=== PATIENT | female | born 1970 | race Caucasian/White ===

== ENCOUNTER → 2017-08-10 | Outpatient (CLI) | payer BC ==
[2017-08-10 15:50] LABS: BASO % 0.5 % (0.0-2.0); EOS # 0.3 (0.0-0.7); EOS % 4.1 % (0-4.0); GRAN # 2.5 (1.4-6.5); GRAN % 40.3 % (42.2-75.2); LYMPH # 2.7 (1.2-3.4); LYMPH % 43.4 % (20.0-51.0); MEAN CELL VOLUME 68 fl (80.0-100.0); MEAN CORPUSCULAR HGB CONC 27 g/dl (33.0-37.0); MEAN PLATELET VOLUME 9.5 fl (7.4-10.4); MONO # 0.7 (0.1-0.6); MONO % 11.4 % (1.7-9.3); PLATELET COUNT 393 K/mm3 (130-400); RED BLOOD COUNT 3.92 M/mm3 (4.10-5.30); REDCELL DISTRIBUTION WIDTH-CV 20.9 % (11.5-14.5)
[2017-08-10 15:54] LABS: HEMATOCRIT 26.6 % (37.0-47.0); HEMOGLOBIN 7.2 g/dl (12.5-16.0); MEAN CORPUSCULAR HEMOGLOBIN 18 pg (27.0-31.0)
[2017-08-10 15:58] LABS: ALBUMIN 4.2 gm/dL (3.5-5.0); BILIRUBIN,TOTAL 0.3 mg/dL (0.0-1.0); CREATININE, serum 0.65 mg/dL (0.52-1.25); POTASSIUM 3.9 mmol/L (3.4-5.0); TOTAL PROTEIN 7.6 gm/dL (6.4-8.2)
[2017-08-10 16:28] LABS: TSH w REFLEX 1.58 uIU/mL (0.465-4.680)
[2017-08-11 00:02] LABS: FOLATE (FOLIC ACID) 10.9 ng/mL (7.0-31.4)
== END ==
LOC: COL.LAB 12:00
PROVIDERS: Family Medicine
DX: Z13.1 Encounter for screening for diabetes mellitus (principal); Z13.220 Encounter for screening for lipoid disorders; D64.9 Anemia, unspecified; F41.9 Anxiety disorder, unspecified

== ENCOUNTER 2017-09-05 08:00 | Outpatient (RCR) | payer BC ==
[2017-09-01 08:54] VITALS: BP 109/48; PULSE 78; TEMP 97.7
[2017-09-02 07:00] VITALS: BP 104/55; PULSE 70; TEMP 98
[2017-09-03 08:15] VITALS: BP 103/47; PULSE 68; TEMP 97.9
[2017-09-04 07:45] VITALS: BP 98/65; PULSE 63; TEMP 97.9
[~2017-09-05] VITALS: Ht 160 cm; Wt 80.4 kg
[2017-09-05 07:38] VITALS: BP 95/55; PULSE 62; TEMP 98.3
== END 2017-09-05 09:24 | disposition home or self-care (01) ==
LOC: EUO 08:00
DX: E61.1 Iron deficiency (principal); E53.8 Deficiency of other specified B group vitamins; Z98.84 Bariatric surgery status
CPT/HCPCS: J2916

== ENCOUNTER → 2018-04-24 | Outpatient (CLI) | payer BC ==
[2018-04-24 10:44] LABS: BASO % 0.5 % (0.0-2.0); EOS # 0.1 (0.0-0.7); EOS % 2.2 % (0-4.0); GRAN # 2.8 (1.4-6.5); LYMPH # 2.3 (1.2-3.4); MEAN CELL VOLUME 79 fl (80.0-100.0); MEAN CORPUSCULAR HGB CONC 30 g/dl (33.0-37.0); MEAN PLATELET VOLUME 9.7 fl (7.4-10.4); MONO # 0.7 (0.1-0.6); PLATELET COUNT 327 K/mm3 (130-400); RED BLOOD COUNT 4.22 M/mm3 (4.10-5.30); REDCELL DISTRIBUTION WIDTH-CV 17.5 % (11.5-14.5)
[2018-04-24 10:45] LABS: HEMATOCRIT 33.2 % (37.0-47.0); HEMOGLOBIN 9.9 g/dl (12.5-16.0); MEAN CORPUSCULAR HEMOGLOBIN 23 pg (27.0-31.0)
[2018-04-24 11:04] LABS: ALBUMIN 3.8 gm/dL (3.5-5.0); BILIRUBIN,TOTAL 0.3 mg/dL (0.0-1.0); CALCIUM 9.3 mg/dL (8.4-10.2); CREATININE, serum 0.59 mg/dL (0.52-1.25); POTASSIUM 4.4 mmol/L (3.4-5.0)
[2018-04-24 11:35] LABS: TSH w REFLEX 2.84 uIU/mL (0.465-4.680)
== END ==
LOC: COL.LAB 09:47
PROVIDERS: Family Medicine
DX: D64.9 Anemia, unspecified (principal); E53.8 Deficiency of other specified B group vitamins; Z98.84 Bariatric surgery status

== ENCOUNTER 2021-07-28 17:12 | Emergency (ER) | payer OTHER, MEDICAID ==
[~2021-07-28] VITALS: Ht 157.5 cm; Wt 74.1 kg
[2021-07-28 17:14] VITALS: TEMP 97.9
[2021-07-28] MEDS ORDERED: PERCOCET 325 MG1 TA2 PO (21:22)
[2021-07-28 21:55] VITALS: BP 114/78; PULSE 76
== END 2021-07-28 21:54 | disposition home or self-care (01) ==
LOC: COL.ER 17:12
DX: S52.501A Unspecified fracture of the lower end of right radius, initial encounter for closed fracture (principal); V43.52XA Car driver injured in collision with other type car in traffic accident, initial encounter
CPT/HCPCS: J1170; J2704; J7030